=== PATIENT | male | born 1990 | race Caucasian/White ===

== ENCOUNTER 2016-08-29 08:59 | Day surgery (SDC) | payer OTHER ==
--- NOTE | 2016-08-25 07:06 | HISTORY & PHYSICAL EXAMINATION ---
DATE: 08/29/2016 ATTENDING PHYSICIAN: Dr. Esposito from [facility]. CHIEF COMPLAINT: Right hand pain. HISTORY OF PRESENT ILLNESS: Kulwinder is a 26-year-old male patient of Dr. Esposito's from [facility] who sustained injury to his right hand while running a drill at work. He was evaluated at [facility]. X-rays were obtained and surgery was recommended for his current diagnosis. All appropriate consents and forms completed and signed. He admits to pain and swelling of the right hand. He has never injured in the past. He denies any numbness or tingling. PAST MEDICAL HISTORY: Negative for any current treatable diagnoses. There is no history of hypertension, diabetes, hyperlipidemia or history of cancer. PAST SURGICAL HISTORY: Includes wisdom tooth extraction. FAMILY HISTORY: Noncontributory. SOCIAL HISTORY: The patient lives at home in a safe environment. Denies any alcohol, tobacco or illegal drug use. MEDICATIONS: None. ALLERGIES: No known drug allergies. REVIEW OF SYSTEMS: The patient denies headache, chest pain, shortness of breath, fevers, chills or night sweats. PHYSICAL EXAMINATION: GENERAL: The patient is an alert and oriented x3 male, who is in no acute distress, pleasant, appears his currently stated age. HEENT: Head is atraumatic, normocephalic. Eyes are equal, round, reactive to light and accommodation. NECK: Supple. No JVD. No lymphadenopathy. CARDIAC: Regular rate and rhythm. S1 greater than S2. No murmurs, rubs or gallops are appreciated. RESPIRATORY: Lungs are clear to auscultation bilaterally in all lung reyes. No rales, rhonchi or wheezing. GASTROINTESTINAL: Abdomen is soft, nontender, nondistended. Normoactive bowel sounds in all 4 quadrants. SKIN: Exam of the right hand reveals some swelling on the dorsum of the right hand. There is no open laceration, erythema, ecchymosis, abrasions or skin breakdown. NEUROVASCULAR: Exam of the right hand reveals distal pulses +2. Capillary refill under 2 seconds. Good sensation with light touch. Fingers freely mobile. MUSCULOSKELETAL: Exam of the right hand: The patient is point tender when palpating the base of the fourth metacarpal of the right hand. There is shortening of the fourth MCP joint when the patient flexes his fingers. There is no major rotational deformity of the fourth finger. Wrist is atraumatic. Radiographs of the patient's right hand reveal a dorsally displaced fourth metacarpal fracture noted best on AP, lateral and oblique views. There is also shortening of the fourth MCP joint on AP view of the radiographs. IMPRESSION: Right fourth metacarpal fracture. PLAN: Kulwinder will undergo an open reduction and internal fixation for a right fourth metacarpal fracture, scheduled for 08/29/2016 at the [facility] to be performed by Dr. Contreras Esposito from [facility]. The patient will use [place] for postoperative pain control. He will see Dr. Esposito 2 weeks after surgery for suture removal and begin physical therapy 2-3 days after surgery at [facility]. He does not require any preoperative labs. The patient was placed back into a well-padded, well-molded ulnar gutter splint. No other questions or concerns. If so, notify [facility] at [phone].
[~2016-08-29] VITALS: Ht 182.9 cm; Wt 81.7 kg
[~2016-08-29 08:59] MED LIST: CEFAZOLIN 2000 MG/60 ML D5W IV SCH; DEXAMETHASONE SOD INJ 4 MG/ML VIAL ONE; FENTANYL CITRATE INJ 50 MCG/1 ML 2 ML VIAL ONE; HYDR-5688 PO; LACTATED RINGER'S 1000ML 1,000 ML IV SCH; LIDOCAINE HCL 2% 2 ML VIAL (20MG/ML) ONE; MIDAZOLAM HCL 1 MG/ML 2ML VIAL ONE; ONDANSETRON INJ 2 MG/ML 2 ML VIAL ONE; PATIENT'S HEIGHT AND/OR WEIGHT NEEDED SCH; PROPOFOL IV EMULSION 10 MG/ML 20 ML VIAL IV ONE
[2016-08-29 09:21] VITALS: BP 118/76; PULSE 49; TEMP 36.5; O2SAT 100; Ht 182.9 cm; Wt 81.7 kg
[2016-08-29 09:21] LABS: HEMATOCRIT 46.2 % (42-52); MEAN CELL VOLUME 82.2 fL (80-100); MEAN CORPUSCULAR HEMOGLOBIN 28.6 pg (25-34); MEAN PLATELET VOLUME 9.3 fL (7.4-10.4); PLATELET COUNT 262 K/uL (130-400); RED BLOOD COUNT 5.62 M/uL (4.7-6.1); WHITE BLOOD COUNT 4.16 K/uL (4.8-10.8)
[2016-08-29 09:23] LABS: MEAN CORPUSCULAR HGB CONC 34.8 g/dl (32-36)
--- NOTE | 2016-08-29 11:00 | History & Physical Bridge Note ---
H&P Re-Evaluation Bridge Note: I have examined the patient, reviewed the History & Physical and in the interval since the performance of the History & Physical I have noted the following changes of clinical significance: No changes noted
[2016-08-29] MEDS ORDERED: EpHEDrine SULFATE 50MG/5ML SYR ONE (11:53)
[2016-08-29] MEDS ORDERED: GLYCOPYRROLATE INJ 0.2 MG/ML VIAL ONE (12:04)
[2016-08-29] MEDS ORDERED: MIX:1% LIDO W/EPI 20ML & 0.5% BUP INJ ONE (12:41)
--- NOTE | 2016-08-29 13:39 | [facility] Post Operative Brief Note ---
Immediate Operative Summary Operative Date Aug 29, 2016. Pre-Operative Diagnosis Right 4th Metacarpal Fracture Post-Operative Diagnosis Same as Pre-Op Procedure(s) Performed Right Fourth Metacarpal Open Reduction Internal Fixation Surgeon Dr. Contreras Esposito Seat Maker Surgeon(s) Kulwinder Spence PA-C (No fellow avail) Estimated Blood Loss 11 Findings Displaced long oblique 4th right metacarpal fracture. Fluids (cc crystalloids) 1000 Specimens None per surgeon Drains n/a Anesthesia LMA Complication(s) None Disposition Recovery Room / PACU (Stable)
--- NOTE | 2016-08-29 13:42 | Discharge Instructions ---
Discharge Instructions Admission Reason for Admission: Right 4TH Metacarpal Fracture Discharge Discharge Diagnosis / Problem: S/P ORIF right 4th Metacarpal Discharge Goals Goal(s): Decrease discomfort, Improve function, Increase independence Activity Recommendations Activity Limitations: per Instructions/Follow-up section Lifting Limitations: no more than 5 pounds May Resume Sexual Activity: when tolerated Shower/Bathe: may shower/bathe in 3 days Driving or Machine Use: Not while using narcotics or in splint . Instructions / Follow-Up Instructions / Follow-Up Dr. Esposito in 10-15 days. Hand therapy/PT in 2-3 days. Current Hospital Diet Patient's current hospital diet: Regular Diet Discharge Diet Recommended Diet: Regular Diet Procedures Procedures Performed: Right Fourth Metacarpal Open Reduction Internal Fixation Pending Studies Studies pending at discharge: no Work Instructions Return To Work: after follow-up Medical Emergencies . Who to Call and When: Medical Emergencies: If at any time you feel your situation is an emergency, please call 911 immediately. . Non-Emergent Contact Non-Emergency issues call your: Surgeon Call Non-Emergent contact if: temperature is above 101.5, your pain is not controlled, wound has increased drainage, wound has increased redness . "Provider Documentation" section prepared by Contreras Esposito. VTE Core Measure Inpt VTE Proph given/why not?: Other Anticoagulation (ASA 325 twice a day starting tomorrow for 3 weeks.), T.E.D. Stockings
--- NOTE | 2016-08-29 13:43 | [facility] Operative Report ---
Operative Report Operative Date Aug 29, 2016. Pre-Operative Diagnosis Right 4th Metacarpal Fracture Post-Operative Diagnosis Same Procedure(s) Performed Open Reduction Internal Fixation Right 4th Metacarpal fracture. Surgeon Dr. Contreras Esposito Molasses Feed Mixer Surgeon(s) Kulwinder Spence PA-C (No fellow avail) Estimated Blood Loss 11 Findings Displaced long oblique 4th right metacarpal fracture. Fluids 1000 Specimens None per surgeon Drains n/a Anesthesia LMA Complication(s) None Disposition Recovery Room / PACU (Stable) Indications The patient is a 26 year old male with a displaced right fourth metacarpal fracture, that I recommended surgical fixation. The patient understands the risks of surgery, which include but are not limited to: bleeding, infection, re- operation, damage to nerves and arteries, continued pain, progression of arthritis, mal-union, non-union, and stiffness. The patient understands all of these instructions and explanations, all of their questions have been satisfactorily addressed. The patient has elected to proceed with surgery and the informed consent was signed. Description of Procedure IMPLANTS: 1. T-plate, 1.5 mm ALPS hand, long ([employer]). 2. 1.5 mm locking screws (0, 10 x 3, 11, 12 mm x 3). 3. 1.5 mm nonlocking screw (12 mm) PROCEDURE: The patient was taken to the Operating Room and placed in the supine position on the operating table. After general anesthetic was administered a multidisciplinary time-out was performed identifying my initials on the right upper extremity as the correct and operative limb. Prior to the incision being made, 2 grams of intravenous Ancef were given. The right upper extremity was prepped and draped in the usual orthopaedic sterile fashion. The planned incision between the fourth and fifth metacarpal was marked and was then injected with 4 cc of a 50:50 mix of 1% Lidocaine plain and 0.5% Bupivacaine with epinephrine. Superficial ulnar and radial nerve block was also performed in the standard fashion using another 6 cc of above-noted mixture. The planned incision was carried down to the extensor mechanism. The distal fragment was exposed first followed by the distal Fragment. The extensor tendon, some superficial veins, and nerves were protected throughout. The fragments were debrided of hematoma with dental pick, rongeur, irrigation and suction. Care was taken not to devitalize the fragments. The two fragments were reduced and held with a K wires and pointed reduction clamp. Fluoroscopy was brought in to ensure near anatomic reduction. A 1.5 mm ALPS T plate was selected and fit well after it was contoured and cut to size. Once the plate was placed and the fracture reduced and held in place with K wire. This was confirmed by Fluoro. 4 locking screws were placed in the distal and proximal fragments and 1 non-locking screw was placed through the plate and both the distal and proximal fragments. Fluoroscopy was used to show a near anatomic reduction with good position of the hardware. The wound was copiously irrigated. The periosteum was closed over the plate with 3-0 Vicryl. The skin was closed with 4-0 Nylon using horizontal mattress stitch. The wound was dressed with Xeroform gauze, sterile gauze, sterile Andrea, sterile Webril, and a volar resting splint was placed. The sponge and needle counts were correct. He was taken to the recovery room in stable condition. Post-op Instructions: Pain medicine prescription was given pre-operatively to be taken as needed. The patient will follow up with me in 10-15 days. The patient will start PT for hand therapy in 2 days and be converted to a cockup wrist splint. I attest to the content of the Intraoperative Record and any orders documented therein. Any exceptions are noted below.
[2016-08-29] MEDS ORDERED: OXYCODONE/ACETAMINOPHEN 5-325 TAB PO PRN (13:45)
[2016-08-29] MEDS ORDERED: MoRPHine SULFATE 2 MG/ML CARP IV PRN (13:45)
[2016-08-29] MEDS ORDERED: ONDANSETRON INJ 2 MG/ML 2 ML VIAL IV PRN ×2 (13:45→14:15)
[2016-08-29] MEDS ORDERED: MoRPHine SULFATE 4 MG/ML 1 ML CARP\\VIAL IV PRN (13:45)
--- NOTE | 2016-08-29 13:57 | DIAGNOSTIC IMAGING REPORT ---
FLUOROSCOPIC IMAGES OF THE RIGHT HAND CLINICAL HISTORY: Right fourth metacarpal internal fixation. COMPARISON STUDY: Right hand radiographs August 23, 2016. FINDINGS: 4 fluoroscopic images were obtained. These images demonstrate plate and screw fixation of the right fourth metacarpal fracture. Alignment appears anatomic. Hardware is intact. There are no unexpected radiopaque foreign bodies. IMPRESSION: Expected findings following internal fixation of the right fourth metacarpal fracture. Electronically signed by: Jax Swenson M.D. 08/29/2016 1:55 PM
[2016-08-29] MEDS ORDERED: HYDROmorphone INJ 1 MG/ML SYR ONE (14:05)
[2016-08-29] MEDS ORDERED: HYDROmorphone INJ 1 MG/ML SYR IV PRN (14:15)
[2016-08-29] MEDS ORDERED: FLUMAZENIL 0.1 MG/1 ML 10 ML VIAL IV PRN (14:15)
[2016-08-29] MEDS ORDERED: NALOXONE HCL 0.4 MG/1 ML VIAL/CARP IV PRN (14:15)
[2016-08-29] MEDS ORDERED: PROMETHAZINE HCL INJ 12.5 MG in SODIUM CHLORIDE 0.9% 50ML 50 ML IV PRN (14:15)
[2016-08-29] MEDS ORDERED: ATROPINE SULFATE 0.1 MG/ML 5ML SYR IV PRN (14:15)
[2016-08-29] MEDS ORDERED: KETOROLAC TROMETHAMINE 30 MG/ML VIAL IV. PRN (14:15)
[2016-08-29] MEDS ORDERED: EpHEDrine SULFATE INJ 50 MG/ML AMP IV PRN (14:15)
--- NOTE | 2016-08-29 14:24 | Anesthesiology Progress Note ---
Anesthesia Post Op Note Date & Time Aug 29, 2016 at 14:23 Vital Signs Pain Intensity: 5.0 Vital Signs Past 12 Hours Date Time Temp Pulse Resp B/P Pulse Ox O2 Delivery O2 Flow Rate FiO2 08/29/16 14:10 56 18 136/82 100 Mask 10 08/29/16 14:00 64 17 131/84 100 Mask 10 08/29/16 13:53 36.7 89 16 139/82 100 Mask 10 08/29/16 09:21 36.5 49 20 118/76 100 Room Air Notes Mental Status: alert / awake / arousable, participated in evaluation Pt Amnestic to Procedure: Yes Nausea / Vomiting: adequately controlled Pain: adequately controlled Airway Patency, RR, SpO2: stable & adequate BP & HR: stable & adequate Hydration State: stable & adequate Anesthetic Complications: no major complications apparent
[2016-08-29] MEDS ORDERED: KETOROLAC TROMETHAMINE 30 MG/ML VIAL ONE (14:27)
[2016-08-29 15:45] VITALS: BP 136/71; PULSE 67; TEMP 36.5; O2SAT 99
--- NOTE | 2016-08-30 13:43 | [facility] Operative Report ---
Operative Report Operative Date Aug 30, 2016. Pre-Operative Diagnosis Right 4th Metacarpal Fracture Post-Operative Diagnosis Same Procedure(s) Performed ORIF right hand Surgeon Dr. Contreras Esposito Hand Cooper Helper Surgeon(s) Kulwinder Spence PA-C (No fellow avail) Estimated Blood Loss 11 Findings same as above Fluids 1000 Specimens None per surgeon Drains n/a Anesthesia LMA Complication(s) None Disposition Recovery Room / PACU (Stable) Indications sustained injury to right hand, xrays obtained, surgery recommended, consents signed Description of Procedure taken to the OR, prepped and draped, I was present the entire case, please see Dr. Esposito's op note for further detail I attest to the content of the Intraoperative Record and any orders documented therein. Any exceptions are noted below.
== END 2016-08-29 15:55 | disposition home or self-care (01) ==
LOC: C.ACU 08:59
PROVIDERS: ATTEND Orthopaedic Surgery Sports Medicine
DX: S62.304A Unspecified fracture of fourth metacarpal bone, right hand, initial encounter for closed fracture (principal); Y93.02 Activity, running; Y93.89 Activity, other specified; Y92.89 Other specified places as the place of occurrence of the external cause; Y99.0 Civilian activity done for income or pay; Z98.890 Other specified postprocedural states

== ENCOUNTER → 2016-10-10 | Outpatient (CLI) | payer OTHER ==
[~2016-10-10] MED LIST changes: -CEFAZOLIN 2000 MG/60 ML D5W IV SCH; -DEXAMETHASONE SOD INJ 4 MG/ML VIAL ONE; +ERYOPO OP; -FENTANYL CITRATE INJ 50 MCG/1 ML 2 ML VIAL ONE; -LACTATED RINGER'S 1000ML 1,000 ML IV SCH; -LIDOCAINE HCL 2% 2 ML VIAL (20MG/ML) ONE; -MIDAZOLAM HCL 1 MG/ML 2ML VIAL ONE; -ONDANSETRON INJ 2 MG/ML 2 ML VIAL ONE; -PATIENT'S HEIGHT AND/OR WEIGHT NEEDED SCH; -PROPOFOL IV EMULSION 10 MG/ML 20 ML VIAL IV ONE
== END | disposition home or self-care (01) ==
LOC: C.RDSM 09:00
PROVIDERS: ATTEND Orthopaedic Surgery Sports Medicine
DX: Z09 Encounter for follow-up examination after completed treatment for conditions other than malignant neoplasm (principal)

== ENCOUNTER → 2016-11-14 | Outpatient (CLI) | payer OTHER | END | disposition home or self-care (01) | LOC: C.RDSM 15:30 | PROVIDERS: ATTEND Orthopaedic Surgery Sports Medicine | DX: Z09 Encounter for follow-up examination after completed treatment for conditions other than malignant neoplasm (principal); Z87.81 Personal history of (healed) traumatic fracture ==

== ENCOUNTER 2017-01-14 20:12 | Emergency (ER) | payer OTHER ==
[~2017-01-14] VITALS: Ht 182.9 cm; Wt 81.8 kg
[~2017-01-14 20:12] MED LIST changes: -ERYOPO OP
[2017-01-14 20:16] VITALS: BP 132/77; PULSE 53; TEMP 36.3; O2SAT 100; Ht 182.9 cm; Wt 81.8 kg
[2017-01-14] MEDS ORDERED: PROPARACAINE HCL 0.5% OP SOLN 15 ML BTL ONE (20:23)
[2017-01-14] MEDS ORDERED: OXYCODONE IR HOME PACK PO ONE (20:45)
[2017-01-14] MEDS ORDERED: ERYOPO OP (20:48)
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
== END 2017-01-14 20:48 | disposition home or self-care (01) ==
LOC: C.EDB 20:13 → C.EDD 20:48
DX: S05.02XA Injury of conjunctiva and corneal abrasion without foreign body, left eye, initial encounter (principal); W22.8XXA Striking against or struck by other objects, initial encounter

== ENCOUNTER 2017-01-17 22:22 | Emergency (ER) | payer OTHER ==
[~2017-01-17] VITALS: Ht 182.9 cm; Wt 79.9 kg
[~2017-01-17 22:22] MED LIST changes: +ERYOPO OP
[2017-01-17 22:33] VITALS: TEMP 36.9; Ht 182.9 cm; Wt 79.9 kg
[2017-01-18] MEDS ORDERED: CIPROFLOXACIN HCL 0.3% OP SOLN 2.5 ML BTL OP ONE (00:15)
[2017-01-18] MEDS ORDERED: HOMATROPINE 5% OP SOLN 5 ML BTL OP ONE (00:15)
--- NOTE | 2017-01-18 00:19 | EMERGENCY ROOM VISIT NOTE ---
ED Visit Note First contact with patient: 23:17 The patient was seen and examined with Saul Champagne PA-C. I agree with the history, physical and findings. Please see the note for disposition and details. The patient has healing corneal abrasion. He appears to have an iritis as well. He has been using some eyedrops which could be contributing. He was instructed to stop these. He declined analgesia. The patient will be started on homatropine. He will take Cipro eyedrops. The patient will be referred to ophthalmology tomorrow. He will see sunglasses to avoid bright lights. If he worsens in any way he will be back to the Emergency Room. I gave my usual and customary discussion regarding this issue. Slit Lamp Examination Indication:eye pain The left eye was prepped with topical proparacaine. Slit lamp examination was performed in the standard fashion. Cornea appeared clear. Anterior chamber normal. Scleral injection present. no discharge present. Fluorescein examination performed and revealed small corneal abrasions , 2 in the 6 o'clock position. No foreign bodies noted. Negative Felisha sign. The patient tolerated the procedure well without complication.
[2017-01-18 00:36] VITALS: BP 131/97; PULSE 72; O2SAT 99
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
== END 2017-01-18 00:37 | disposition home or self-care (01) ==
LOC: C.EDB 22:23 → C.EDA 01-18 00:37
DX: S05.02XA Injury of conjunctiva and corneal abrasion without foreign body, left eye, initial encounter (principal); W22.8XXA Striking against or struck by other objects, initial encounter

== ENCOUNTER → 2017-08-15 | Outpatient (CLI) | payer OTHER ==
[~2017-08-15] MED LIST changes: -HYDR-5688 PO; +PRLSR20 PO
== END | disposition home or self-care (01) ==
LOC: C.RDSM 13:05
PROVIDERS: ATTEND Orthopaedic Surgery Sports Medicine
DX: Z96.7 Presence of other bone and tendon implants (principal); Z98.890 Other specified postprocedural states

== ENCOUNTER → 2017-11-15 | Outpatient (CLI) | payer OTHER, BC ==
[~2017-11-15] MED LIST changes: -PRLSR20 PO
--- NOTE | 2017-11-15 07:55 | DIAGNOSTIC IMAGING REPORT ---
ABDOMEN COMPLETE (US) CLINICAL HISTORY: R10.11 Abdominal pain, RUQ COMPARISON STUDY: No previous studies for comparison. FINDINGS: The liver appears sonographically normal. The gallbladder appears sonographically normal. The pancreas appears sonographically normal. There is no ductal dilatation. The common bile duct measures 4 mm. The spleen measures 12 cm in length. No splenic masses are visualized. The right kidney measures 10.6 cm in length. The left kidney measures 11.4 cm in length. No renal masses are visualized. There is no hydronephrosis. No evidence of bowel is of the IVC or aorta were visualized. IMPRESSION: Normal study Electronically signed by: Wyatt Warren M.D. 11/15/2017 7:53 AM Dictated Date/Time: 11/15/2017 7:51 AM
== END | disposition home or self-care (01) ==
LOC: C.ULTR 07:12
PROVIDERS: ATTEND Physician Assistant
DX: R10.11 Right upper quadrant pain (principal)

== ENCOUNTER → 2017-12-18 | Outpatient (CLI) | payer OTHER, BC ==
[~2017-12-18] MED LIST changes: +PRLSR20 PO; +SINCALIDE INJ 1.6 MCG in SODIUM CHLORIDE 0.9% 100ML 100 ML IV ONE
--- NOTE | 2017-12-18 10:22 | DIAGNOSTIC IMAGING REPORT ---
HEPATOBILIARY EF IMAGING HISTORY: Pain. Nausea R10.11 Abdominal pain, [id number] COMPARISON: None. TECHNIQUE: Immediately following the intravenous administration of 5.6 mCi Tc-99m Choletec, dynamic anterior abdominal imaging pre/post 1.6 mcg of Kinevac was performed. FINDINGS: Uniform hepatic tracer accumulation is shown. Prompt intrahepatic biliary excretion is seen. The gallbladder, common bile duct, and small bowel are all visualized by 30 minutes. This appearance represents the normal sequence of biliary excretion. The gallbladder ejection fraction following administration of Kinevac was 40 % (normal >35%). IMPRESSION: 1. No evidence for cystic duct obstruction. 2. Gallbladder ejection fraction calculated to be 40 %. The above report was generated using voice recognition software. It may contain grammatical, syntax or spelling errors. Electronically signed by: Waldemar Lepe M.D. 12/18/2017 10:20 AM Dictated Date/Time: 12/18/2017 10:19 AM
== END | disposition home or self-care (01) ==
LOC: C.NUCL 07:53
PROVIDERS: ATTEND Physician Assistant
DX: R10.11 Right upper quadrant pain (principal)

== ENCOUNTER → 2018-01-07 | Day surgery (SDC) | payer OTHER, BC ==
[2017-12-20 09:42] VITALS: Ht 182.9 cm; Wt 79.5 kg
[~2018-01-07] VITALS: Ht 182.9 cm; Wt 79.5 kg
[~2018-01-07] MED LIST changes: +FENTANYL CITRATE INJ 50 MCG/1 ML 2 ML VIAL ONE; +LIDOCAINE HCL 2% 2 ML VIAL (20MG/ML) ONE; +PROPOFOL IV EMULSION 10 MG/ML 20 ML VIAL ONE; -SINCALIDE INJ 1.6 MCG in SODIUM CHLORIDE 0.9% 100ML 100 ML IV ONE; +SODIUM CHLORIDE 0.9% 500ML 500 ML IV ONE
--- NOTE | 2018-01-07 10:14 | Endo History and Physical ---
History & Physical Date of Service: January 07, 2018. Chief Complaint: RUQ pain Referring Physician: Dr. Sariah Lane History of Present Illness 27 yo CM who presents for EGD secondary to RUQ abdominal pain. Past Surgical History Hx Cardiac Surgery: No Hx Internal Defibrillator: No Hx Pacemaker: No Hx Abdominal Surgery: No Hx of Implantable Prosthesis: No Hx Post-Op Nausea and Vomiting: No Hx Cancer Surgery: No Hx Thoracic Surgery: No Hx Orthopedic: Yes (R HAND 4TH METACARPAL FRACTURE REPAIR) Hx Urinary Tract Surgery: No Family History Colon CA Social History Smoking Status: Never Smoker Hx Substance Use: No Hx Alcohol Use: Yes (RARELY) Allergies Coded Allergies: No Known Allergies (Verified , 01/07/18) Current Medications Reported Home Medications Medications Dose Route/Sig Max Daily Dose Days Date Category Dose Instructions Prilosec (Omeprazole) 20 Mg Capcr 20 Mg PO DAILY 12/20/17 Reported Erythromycin Opth (Erythromycin) 12 Appln/3.5 Gm Oint 1 Appln OP UD 01/14/17 Reported USE DIRECTED Vital Signs Weight (Kilograms): 79.55 Height (Feet): 6 Height (Inches): 0 Date Time Temp Pulse Resp B/P (MAP) Pulse Ox O2 Delivery O2 Flow Rate FiO2 01/07/18 09:46 36.7 49 16 114/78 (90) 100 Room Air Physical Exam General Appearance: WD/WN, no apparent distress Respiratory/Chest: Auscultation: breath sounds normal Cardiovascular: Heart Auscultation: RRR Abdomen: Bowel Sounds: normal Inspection & Palpation: soft, non-distended, no tenderness, guarding & rebound Assessment and Plan Assessment: 27 yo CM who presents for EGD secondary to RUQ abdominal pain. Plan: Proceed with EGD.
--- NOTE | 2018-01-07 10:29 | Discharge Instructions ---
Endoscopy Patient Instructions Date / Procedure(s) Performed January 07, 2018. EGD Allergy Information Coded Allergies: No Known Allergies (Verified , 01/07/18) Discharge Date / Findings January 07, 2018. Gastritis s/p biopsies Medication Instructions OK to resume all medications today as prescribed Reported Home Medications Medications Dose Route/Sig Max Daily Dose Days Date Category Dose Instructions Prilosec (Omeprazole) 20 Mg Capcr 20 Mg PO DAILY 12/20/17 Reported Erythromycin Opth (Erythromycin) 12 Appln/3.5 Gm Oint 1 Appln OP UD 01/14/17 Reported USE DIRECTED Provider Instructions Activity Restrictions - No exercising or heavy lifting for 24 hours. - Do not drink alcohol the day of the procedure. - Do not drive a car or operate machinery until the day after the procedure. - Do not make any important decisions or sign important papers in 24 hours after the procedure. Following Day: - Return to full activity which may include returning to work/school. Diet Start your diet with liquids and light foods (jello, soup, juice, toast). Then eat your usual diet if not nauseated. Treatment For Common After Affects For mild abdominal pain, bloating, or excessive gas: - Rest - Eat lightly - Lie on right side Follow-Up Information Follow-up with Dr. Sariah Lane as scheduled Anesthesia Information What You Should Know You have had a procedure that required some medicine to reduce anxiety and discomfort. This treatment is called moderate sedation. After receiving the treatment, you may be sleepy, but you will be able to breathe on your own. The effects of the treatment may last for several hours. Follow these instructions along with Activity/Diet recommendations noted above: * Do NOT do anything where dizziness or clumsiness would be dangerous. * Rest quietly at home today, then you can be up and about tomorrow. * Have a responsible person stay with you the rest of today. * You may have had an I.V. today. If so, you may take the dressing off later today. Recommendations Call your doctor if: * Trouble breathing * Continuous vomiting for more than 24 hours * Temperature above 101 degrees * Severe abdominal pain or bloating * Pain not relieved by pain medicine ordered * There is increased drainage or redness from any incision * A large amount of rectal bleeding greater than 2-3 tablespoons. (If you had a polyp/s removed or have hemorrhoids, a small amount of blood - from the rectum is to be expected.) * You have any unanswered questions or concerns. IN THE EVENT OF A SERIOUS EMERGENCY, GO TO THE NEAREST EMERGENCY ROOM Your discharge instructions were prepared by provider Geronimo Nicole. Patient Instructions Signature Page Kulwinder Baca Patient (or Guardian) Signature/Date: I have read and understand the instructions given to me by my caregivers. Caregiver/RN/Doctor Signature/Date: The above-named patient and/or guardian has received patient instructions on this date. + Original Patient Signature Page (only) stays with chart. Please make copy for patient.
--- NOTE | 2018-01-07 10:31 | GI REPORT ---
Patient Name: Kulwinder Baca Procedure Date: 01/07/2018 10:04 AM Date of : 1990 Admit Type: Outpatient Age: 27 Gender: Male Attending MD: Geronimo Nicole DO Procedure: Upper GI endoscopy Providers: Geronimo Nicole DO Referring MD: Ирина Cramer Indications: Abdominal pain in the right upper quadrant Medicines: Monitored Anesthesia Care Complications: No immediate complications. Estimated Blood Loss: Estimated blood loss: none. Procedure: Pre-Anesthesia Assessment: - Prior to the procedure, a History and Physical was performed, and patient medications and allergies were reviewed. The patient's tolerance of previous anesthesia was also reviewed. The risks and benefits of the procedure and the sedation options and risks were discussed with the patient. All questions were answered, and informed consent was obtained. Prior Anticoagulants: The patient has taken no previous anticoagulant or antiplatelet agents. ASA Grade Assessment: II - A patient with mild systemic disease. After reviewing the risks and benefits, the patient was deemed in satisfactory condition to undergo the procedure. After obtaining informed consent, the endoscope was passed under direct vision. Throughout the procedure, the patient's blood pressure, pulse, and oxygen saturations were monitored continuously. The On-site loaner was introduced through the mouth, and advanced to the second part of duodenum. The upper GI endoscopy was accomplished without difficulty. The patient tolerated the procedure well. Findings: The esophagus was normal. Localized moderate inflammation characterized by erythema was found in the gastric antrum. Biopsies were taken with a cold forceps for histology. The examined duodenum was normal. Impression: - Normal esophagus. - Gastritis. Biopsied. - Normal examined duodenum. Recommendation: - Resume previous diet. - Continue present medications. - Await pathology results. - Return to GI office as previously scheduled. Geronimo Nicole DO 01/07/2018 10:30:41 AM This report has been signed electronically. Note Initiated On: 01/07/2018 10:04 AM Number of Addenda: 0 I attest to the content of the Intraoperative Record and orders documented therein, exceptions below {[id number]}
--- NOTE | 2018-01-07 10:57 | Anesthesiology Progress Note ---
Anesthesia Post Op Note Date & Time January 07, 2018 at 10:57 Vital Signs Pain Intensity: 0 Vital Signs Past 12 Hours Date Time Temp Pulse Resp B/P (MAP) Pulse Ox O2 Delivery O2 Flow Rate FiO2 01/07/18 10:53 52 16 125/70 (88) 98 Room Air 01/07/18 10:38 36.5 45 16 120/66 (84) 98 Room Air 01/07/18 09:46 36.7 49 16 114/78 (90) 100 Room Air Notes Mental Status: alert / awake / arousable, participated in evaluation Pt Amnestic to Procedure: Yes Nausea / Vomiting: adequately controlled Pain: adequately controlled Airway Patency, RR, SpO2: stable & adequate BP & HR: stable & adequate Hydration State: stable & adequate Anesthetic Complications: no major complications apparent
[2018-01-07 11:08] VITALS: BP 121/64; PULSE 51; O2SAT 98
== END | disposition home or self-care (01) ==
LOC: C.GI 09:28
PROVIDERS: ATTEND Internal Medicine
DX: K29.60 Other gastritis without bleeding (principal); Z98.890 Other specified postprocedural states; Z80.0 Family history of malignant neoplasm of digestive organs